=== PATIENT | male | born 1965 | race Caucasian/White ===

== ENCOUNTER 2016-11-05 08:14 | Emergency (ER) | payer BC ==
[~2016-11-05] VITALS: Ht 182.9 cm; Wt 102.1 kg
[2016-11-05 08:45] VITALS: BP 141/95
[2016-11-05] MEDS ORDERED: KETOROLAC TROMETH 60MG/2ML VIAL IM ONE (09:15)
== END 2016-11-05 09:49 | disposition home or self-care (01) ==
LOC: ER 08:15
DX: S46.911A Strain of unspecified muscle, fascia and tendon at shoulder and upper arm level, right arm, initial encounter (principal); Z88.6 Allergy status to analgesic agent; Z88.8 Allergy status to other drugs, medicaments and biological substances; Z91.041 Radiographic dye allergy status; W22.03XA Walked into furniture, initial encounter; Y93.89 Activity, other specified; Y99.9 Unspecified external cause status; Y92.009 Unspecified place in unspecified non-institutional (private) residence as the place of occurrence of the external cause
CPT/HCPCS: 29105; 73030; 96372; 99284; J1885

== ENCOUNTER 2019-10-18 18:06 | Inpatient (IN) | payer BC ==
[~2019-10-18] VITALS: Ht 182.9 cm; Wt 85.7 kg
[2019-10-18] MEDS ORDERED: PANTOPRAZOLE 40 MG/10 ML VIAL INJ IV STA (18:46)
[2019-10-18] MEDS ORDERED: SODIUM CHLORIDE 0.9% 1,000 ML IVB ONE (18:46)
[2019-10-18] MEDS ORDERED: ONDANSETRON HCL 4 MG/2 ML VIAL IV ONE (19:00)
[2019-10-18] MEDS ORDERED: MORPHINE SULFATE 4 MG/ML SYR/VIAL IV ONE (19:00)
[2019-10-18 21:02] LABS: Alanine Aminotransferase 76 U/L (16-61); Anion Gap 16 (5-15); Aspartate Aminotransferase 62 U/L (15-37); BUN/Creatinine Ratio 7.4; Blood Alcohol < 3.0 mg/dL (0-5); Blood Urea Nitrogen 6 mg/dL (7-18); Calcium 9.9 mg/dL (8.5-10.1); Carbon Dioxide 17 mmol/L (21-32); Chloride 82 mmol/L (98-107); GFR African American 129 mL/min; GFR Non-African American 106 mL/min; Glucose 93 mg/dL (74-106); Lipase 138 U/L (73-393); Potassium 4.2 mmol/L (3.5-5.1)
[2019-10-18 21:04] LABS: Alkaline Phosphatase 84 U/L (45-117); Bilirubin, Total 1.2 mg/dL (0.2-1.0); Total Protein 8.1 g/dL (6.4-8.2)
[2019-10-18 21:07] LABS: Sodium 115 mmol/L (136-145)
[2019-10-18 22:20] LABS: Basophils # (auto) 0.1 uL; Eosinophils # (auto) 0 uL; Mean Corpuscular Volume 99.4 fL (80.0-100.0); Platelet Count (auto) 183 10^3/uL (140-450); White Blood Cell 5.5 10^3/uL (4.4-10.8)
[2019-10-18 22:21] LABS: Eosinophils % (auto) 0.8 % (0.0-7.0); Hematocrit 41.3 % (41.0-53.0); Hemoglobin 15.3 g/dL (13.5-17.5); Mean Corpuscular Hemoglobin 36.8 pg (28.0-32.0); Mean Corpuscular Hgb Conc. 37.1 g/dL (32.0-36.0); Monocytes # (auto) 0.3 uL; Monocytes % (auto) 6.1 % (0.0-12.0); Neutrophils # (auto) 4.1 uL; Neutrophils % (auto) 74.1 % (37.0-80.0); Nucleated Red Blood Cells % 0.4 %; Red Blood Cells 4.15 10^6/uL (4.5-5.90); Red Cell Distribution Width 14.7 % (11.8-14.3)
[2019-10-18] MEDS ORDERED: NITROGLYCERIN 0.4 MG SL TAB SL PRN (22:45)
[2019-10-18] MEDS ORDERED: ONDANSETRON HCL 4 MG/2 ML VIAL IV PRN (22:45)
[2019-10-18] MEDS ORDERED: MORPHINE SULF INJ 2 MG/ML SYRINGE 1ML IV PRN (22:45)
[2019-10-18] MEDS ORDERED: SODIUM CHL 3% 500 ML IV ONE (23:00)
[2019-10-18 23:30] LABS: Urine Bacteria NONE SEEN /hpf (None Seen); Urine Blood Negative /uL (Negative); Urine Specific Gravity 1.005 (1.001-1.035); Urine WBC 1 /hpf (0 - 3)
[2019-10-19] VITALS (8 sets, daily range): BP systolic 128–165; BP diastolic 82–94
--- NOTE | 2019-10-19 01:05 | NUR ---
Admit to [facility] admitted to [facility] via gurney on monitor tech. Patient transferred to bed, connected to unit monitoring, and weighed by bed scale. Patient oriented to Adrinaa zamudio RN, unit, room, bed, and unit policies regarding patient care and visiting hours. All questions and concerns addressed, patient verbalized understanding. NOTE: PATIENT IS AWAKE, ALERT AND ORIENTED X4. TREMORS NOTED ON LEFT ARM. NO SOB OR DISTRESS NOTED. ON ROOM AIR. PAIN 3/10 NOTED TO ABDOMEN. NS INFUSING AT 100 ML/H. PHYSICAL ASSESSMENT COMPLETED, SEE INTERVENTIONS. INSTRUCTED ON POC AND TO CALL FOR ASSIST NEEDED. BED IS IN THE LOWEST POSITION WITH SIDE RAILS UP X2, CALL LIGHT IS WITHIN REACH. URINAL WITHIN REACH.
[2019-10-19] MEDS: chlordiazePOXIDE HCL 25 MG CAP PO PRN ×2 (01:32→09:28)
[2019-10-19] MEDS: TEMAZEPAM 15 MG CAP PO PRN (01:33)
[2019-10-19] MEDS ORDERED: BECL80AE11 IN (02:09)
[2019-10-19] MEDS ORDERED: ALBUAER3 IN (02:09)
[2019-10-19] MEDS ORDERED: BUPR200T7 PO (02:09)
[2019-10-19] MEDS ORDERED: OMEP20TA PO (02:09)
[2019-10-19] MEDS ORDERED: ALPR0.5T7 PO (02:09)
[2019-10-19] MEDS ORDERED: IBUP800T24 PO (02:09)
[2019-10-19] MEDS ORDERED: LISI40TA PO (02:09)
[2019-10-19] MEDS ORDERED: AML5T PO (02:09)
[2019-10-19] MEDS ORDERED: ZOLP10TA6 PO (02:09)
[2019-10-19] MEDS ORDERED: ALBUTEROL SULF 2.5 MG/0.5ML(0.5%) NEB SOLN NEB PRN (04:45)
[2019-10-19] MEDS: HYDROcodone-ACET 5/325MG TAB PO PRN ×2 (06:08→11:30)
[2019-10-19] MEDS ORDERED: cloNIDine HCL 0.1 MG TAB PO PRN (06:15)
--- NOTE | 2019-10-19 07:15 | NUR ---
END OF SHIFT REPORT GIVEN AND CARE ENDORSED TO AMY PRATER.
[2019-10-19 07:22] LABS: Basophils # (auto) 0 uL; Hemoglobin 14.8 g/dL (13.5-17.5); Mean Corpuscular Volume 99.6 fL (80.0-100.0); Nucleated Red Blood Cells % 0.3 %; White Blood Cell 4.3 10^3/uL (4.4-10.8)
[2019-10-19 07:24] LABS: Basophils % (auto) 0.4 % (0.0-2.0); Eosinophils # (auto) 0 uL; Hematocrit 39.5 % (41.0-53.0); Lymphocytes % (auto) 23.2 % (10.0-50.0); Mean Corpuscular Hemoglobin 37.4 pg (28.0-32.0); Mean Corpuscular Hgb Conc. 37.5 g/dL (32.0-36.0); Monocytes # (auto) 0.4 uL; Monocytes % (auto) 8.5 % (0.0-12.0); Neutrophils # (auto) 2.9 uL; Neutrophils % (auto) 66.9 % (37.0-80.0); Platelet Count (auto) 181 10^3/uL (140-450); Red Blood Cells 3.97 10^6/uL (4.5-5.90); Red Cell Distribution Width 14.2 % (11.8-14.3)
[2019-10-19 07:36] LABS: Potassium 3.9 mmol/L (3.5-5.1)
[2019-10-19 07:44] LABS: BUN/Creatinine Ratio 7.4; Bilirubin, Total 1.2 mg/dL (0.2-1.0); Calcium 9.4 mg/dL (8.5-10.1); Total Protein 7.7 g/dL (6.4-8.2)
--- NOTE | 2019-10-19 08:00 | NUR ---
OPEN RECEIVED REPORT FROM NIGHT RN. ASSUMED CARE OF [facility] PATIENT, FULL CODE STATUS. PATIENT A & O X4 CALM AND FOLLOWS COMMANDS. NO PAIN AT THIS TIME. PATIENT HAS IV TO RIGHT AC #18G WITH NA+ 3% AT 30 ML/HR. CURRENT NA + LEVEL THIS AM IS 120. PATIENT ON ROOM AIR, SATS 99%. PATIENT DUE TO VOID, USES URINAL. SKIN INTACT, PATIENT ABLE TO TURN SELF. WILL CONTINUE TO MONITOR. SZ PRECAUTIONS IN PLACE. CONTINUE CARE.
[2019-10-19] MEDS: FAMOTIDINE 20 MG TAB PO SCH ×2 (09:28→22:00)
[2019-10-19] MEDS: BUDESONIDE (INHALATION) 0.5 MG/2 ML NEB NEB SCH ×2 (09:47→18:50)
[2019-10-19] MEDS ORDERED: FOLIC ACID 1 MG, MULTIPLE VITAMIN 10 ML, MAGNESIUM SULF SDV 50% 8 MEQ, THIAMINE INJ 100... INJ SCH ×5 (12:00)
--- NOTE | 2019-10-19 13:29 | NUR ---
IV insertion IV access obtained, via clean sterile technique by inserting 20 gauge catheter at LEFT FA after 1 attempt. IV secured properly. No trauma to site. Patient tolerated well.
--- NOTE | 2019-10-19 15:30 | NUR ---
DR. Dony HERRING: ORDERS MD PLACED ORDERS IN PATIENT'S CHART AT THIS TIME. WILL CARRY OUT ORDERS GIVEN. CONTINUE CARE.
--- NOTE | 2019-10-19 16:15 | NUR ---
DR. SCHILLING CALLED: ORDERS MD UPDATED ON PT'S TRENDING NA+ LEVELS SINCE ADMISSION. ORDERS GIVEN TO STOP NA+3% GTT AT THIS TIME. DRAW NA+ LEVEL AT 1800. HAVE NOC RN CALL DR. SCHILLING WITH THE RESULTS TONIGHT. ALSO WANTING TO SEND URINE FOR OSMOLALITY AND SODIUM LEVELS. CONTINUE CARE. ORDERS TO BE CARRIED OUT. WILL SEND NEXT VOIDED URINE.
[2019-10-19 18:34] LABS: Potassium 4.3 mmol/L (3.5-5.1)
--- NOTE | 2019-10-19 19:35 | NUR ---
Opening Shift Note Received report from day nurse Vickie. Assumed care of patient in room 264. Patient awake and alert. No S/S of distress/SOB or pain. Instructed on POC and to call for assist PRN. Call light within reach and patient aware on usage. Bed set at lowest setting. Complete physical assessment under interventions. Will continue to monitor for changes Q1hr and PRN.
--- NOTE | 2019-10-19 20:15 | NUR ---
Paged Dr. Vega Regarding lab NA value. New orders given to decrease rate of banana bag to 80 mls/hr. Pharmacy called and informed of change.
[2019-10-19] MEDS: FOLIC ACID 1 MG, MULTIPLE VITAMIN 10 ML, MAGNESIUM SULF SDV 50% 8 MEQ, THIAMINE INJ 100... INJ SCH ×5 (21:15)
[2019-10-20] VITALS: BP 134/86
[2019-10-20 01:25] LABS: BUN/Creatinine Ratio 10.4; Calcium 8.7 mg/dL (8.5-10.1)
--- NOTE | 2019-10-20 02:00 | NUR ---
Patient reoriented Period where patient had forgotten location. Reoriented by RN and CCT.
--- NOTE | 2019-10-20 03:20 | NUR ---
Patient requesting drink Complaining of difficulty sleeping. Sleeping aid administered.
--- NOTE | 2019-10-20 03:41 | NUR ---
Full linen change Wash clothes provided. Patient able to wash himself.
[2019-10-20 04:00] VITALS: BP 134/78
[2019-10-20] MEDS: TEMAZEPAM 15 MG CAP PO PRN ×2 (04:22→22:20)
[2019-10-20 06:06] LABS: Potassium 3.7 mmol/L (3.5-5.1)
[2019-10-20 06:20] LABS: BUN/Creatinine Ratio 10.3; Calcium 8.8 mg/dL (8.5-10.1)
[2019-10-20] MEDS: BUDESONIDE (INHALATION) 0.5 MG/2 ML NEB NEB SCH ×2 (06:29→22:41)
[2019-10-20 07:45] VITALS: BP 131/92
--- NOTE | 2019-10-20 07:45 | NUR ---
Opening Shift Note Assumed care of patient, awake and alert. No S/S of distress/SOB or pain. Patient saturation 95% at room air. See interventions for complete assessment. Bed locked on low position, side rails up x2, bed alarms on at all times, call mckenzie within reach, instructed on POC and to call for assist PRN, will continue to monitor for changes Q1hr and PRN.
[2019-10-20] MEDS: FAMOTIDINE 20 MG TAB PO SCH ×2 (09:29→21:24)
[2019-10-20] MEDS: chlordiazePOXIDE HCL 25 MG CAP PO PRN (09:30)
[2019-10-20 11:45] VITALS: BP 129/89
[2019-10-20 12:07] LABS: Calcium 8.7 mg/dL (8.5-10.1)
[2019-10-20 12:09] LABS: BUN/Creatinine Ratio 11.5
[2019-10-20] MEDS: FOLIC ACID 1 MG, MULTIPLE VITAMIN 10 ML, MAGNESIUM SULF SDV 50% 8 MEQ, THIAMINE INJ 100... INJ SCH ×5 (12:35)
--- NOTE | 2019-10-20 12:57 | NUR ---
Patient's Sodium 126, paged Dr Vega. Awaiting call back.
--- NOTE | 2019-10-20 13:20 | NUR ---
Spoke to Dr Vega over the phone updated on patient's status. Informed of patient's sodium level 126. verbalized understanding. Will come and see patient.
--- NOTE | 2019-10-20 15:49 | NUR ---
Dr Vega at bedside, updated on patient's status. Patient seen and examined. Will carry out new orders.
[2019-10-20 15:50] VITALS: BP 122/80
--- NOTE | 2019-10-20 17:21 | NUR ---
Dr Mcgowan at bedside, updated on patient's status. Patient seen and examined. Will carry out new orders.
--- NOTE | 2019-10-20 18:19 | NUR ---
Spoke to Dr Mcgowan over the phone and states "I will put discharge order now but patient can go home tomorrow."
--- NOTE | 2019-10-20 19:00 | NUR ---
[facility] to [facility] floor ambulatory on production officer. All patient medications and personal belongings including cellphone transferred with patient to receiving floor. Patient care transferred to Ori PRATER.
--- NOTE | 2019-10-20 19:05 | NUR ---
Pt in stable condition arrived to the [facility] floor. Will continue care.
[2019-10-20] MEDS: ACETAMINOPHEN 325 MG TAB PO PRN (21:24)
[2019-10-20 22:00] VITALS: BP 140/76
[2019-10-20] MEDS: SODIUM CHLORIDE 1 GM TAB PO SCH (22:36)
--- NOTE | 2019-10-21 01:15 | NUR ---
Pt accidentally removed his IV from the right AC. He called for help because of bleeding. Compressive dressing applied. Bed change performed.
--- NOTE | 2019-10-21 03:10 | NUR ---
Checked IV Side for bleeding. No bleeding visible on the removed IV in the left ac.
--- NOTE | 2019-10-21 03:20 | NUR ---
Pt was outside of his room looking for a wrong room number. COST ESTIMATING CLERK helped him to find his room . Reoriented pt to place and time. He went to sleep again.
[2019-10-21 05:00] VITALS: BP 159/86
[2019-10-21] MEDS: SODIUM CHLORIDE 1 GM TAB PO SCH (06:56)
[2019-10-21 06:57] LABS: Calcium 8.8 mg/dL (8.5-10.1); Potassium 3.9 mmol/L (3.5-5.1)
--- NOTE | 2019-10-21 07:50 | NUR ---
OPENING NOTE ASSUMED CARE OF PT. ALERT AND ORIENTED. NO S/S OF SOB/DISTRESS NOTED. DENIES ANY PAIN. SAFETY PRECAUTIONS IN PLACE. BED SET TO LOWEST POSITION/LOCKED, BEDSIDE RAILS UP X2, CALL LIGHT WITH IN REACH. INSTRUCTED PT TO CALL FOR ASSISTANCE. UPDATED ON POC. PT VERBALIZED UNDERSTANDING. WILL CONTINUE TO MONITOR Q1HR AND PRN.
[2019-10-21 08:00] VITALS: BP 149/98
[2019-10-21] MEDS: chlordiazePOXIDE HCL 25 MG CAP PO PRN (09:11)
[2019-10-21] MEDS: ACETAMINOPHEN 325 MG TAB PO PRN (09:11)
[2019-10-21] MEDS: FAMOTIDINE 20 MG TAB PO SCH (09:11)
[2019-10-21] MEDS: BUDESONIDE (INHALATION) 0.5 MG/2 ML NEB NEB SCH (10:16)
[2019-10-21 10:34] VITALS: BP 149/98
--- NOTE | 2019-10-21 10:53 | NUR ---
DISCHARGE Discharge instructions given as ordered. Encourage to follow up with PMD as instructed. All questions and concerns addressed. Patient verbalized understanding. IV removed with catheter intact, pressure dressing applied. Telemetry unit returned to ICU.
--- NOTE | 2019-10-21 11:10 | NUR ---
TELE MONITOR TELE BOX #[id number] RETURNED TO ICU. FRENCH DRAWER ANGIE IS AWARE.
--- NOTE | 2019-10-21 11:35 | NUR ---
Patient taken to vehicle via wheelchair with all personal belongings, accompanied by staff and family member. No distress noted at time of departure.
== END 2019-10-21 11:37 | disposition home or self-care (01) | DRG 641 ==
LOC: EDBD 18:06 → ER 18:19 → TELE 18:20 → DOU IN ICU 23:37 → TELE-EAST 10-20 19:14
PROVIDERS: ADMIT Nurse Practitioner; ATTEND Internal Medicine
DX: E87.1 Hypo-osmolality and hyponatremia (principal); F10.231 Alcohol dependence with withdrawal delirium; E87.8 Other disorders of electrolyte and fluid balance, not elsewhere classified; R10.13 Epigastric pain; K70.30 Alcoholic cirrhosis of liver without ascites; R11.2 Nausea with vomiting, unspecified; J45.909 Unspecified asthma, uncomplicated; I10 Essential (primary) hypertension; E78.5 Hyperlipidemia, unspecified; F17.210 Nicotine dependence, cigarettes, uncomplicated; Z80.0 Family history of malignant neoplasm of digestive organs; Z80.1 Family history of malignant neoplasm of trachea, bronchus and lung; Z88.8 Allergy status to other drugs, medicaments and biological substances; Z79.899 Other long term (current) drug therapy; Z79.51 Long term (current) use of inhaled steroids
CPT/HCPCS: 36415; 74176; 80048; 80053; 80320; 81001; 83690; 83735; 83935; 84295; 84300; 85025; 94640; 96361; 96374; 96375; 99291; C9113; G0378; J2405

== ENCOUNTER 2021-09-20 12:50 | Inpatient (IN) | payer BC ==
[~2021-09-20] VITALS: Ht 177.8 cm; Wt 97.9 kg
[~2021-09-20 12:50] MED LIST: ALBUAER3 IN; ALPR0.5T7 PO; AML5T PO; BECL80AE11 IN; BUPR200T7 PO; LISI40TA11 PO; OMEP20TA PO; ZOLP10TA6 PO
[2021-09-20] MEDS ORDERED: SODIUM CHLORIDE 0.9% 1,000 ML IV ONE (13:45)
[2021-09-20 19:31] LABS: Basophils # (auto) 0.3 10 ^3/uL (0-0.2); Basophils % (auto) 1.8 % (0.0-2.0); Eosinophils # (auto) 0.5 10 ^3/uL (0-0.8); Eosinophils % (auto) 2.9 % (0.0-7.0); Hematocrit 36.5 % (41.0-53.0); Hemoglobin 13.1 g/dL (13.5-17.5); Lymphocytes # (auto) 1.1 10 ^3/uL (0.4-5.4); Lymphocytes % (auto) 7.2 % (10.0-50.0); Mean Corpuscular Hemoglobin 32.6 pg (28.0-32.0); Mean Corpuscular Volume 90.5 fL (80.0-100.0); Monocytes # (auto) 0.8 10 ^3/uL (0-1.3); Monocytes % (auto) 4.8 % (0.0-12.0); Neutrophils # (auto) 13.2 10 ^3/uL (1.6-8.6); Neutrophils % (auto) 83.3 % (37.0-80.0); Nucleated Red Blood Cells % 0.2 %; Red Blood Cells 4.03 10^6/uL (4.5-5.90); Red Cell Distribution Width 15.3 % (11.8-14.3); White Blood Cell 15.8 10^3/uL (4.4-10.8)
[2021-09-20 19:47] LABS: Albumin 3.2 g/dL (3.4-5.0); Calcium 8.7 mg/dL (8.5-10.1); Magnesium 3.3 mg/dL (1.6-2.6); Potassium 3.4 mmol/L (3.5-5.1)
[2021-09-20 19:53] LABS: Bilirubin, Total 0.8 mg/dL (0.2-1.0); Total Protein 7.1 g/dL (6.4-8.2)
[2021-09-20 20:11] LABS: BUN/Creatinine Ratio 35.5
[2021-09-21] MEDS ORDERED: cefTRIAXone 1GM/50ML D5W 50 ML IV ONE
[2021-09-21] MEDS ORDERED: AZITHROMYCIN 500MG/ 250ML 250 ML IV ONE
[2021-09-21] MEDS ORDERED: LORazepam 2MG/ML-1ML VIAL IV ONE (00:45)
[2021-09-21] MEDS ORDERED: ONDANSETRON HCL 4 MG/2 ML VIAL IV PRN (03:45)
[2021-09-21] MEDS ORDERED: hydrALAZINE HCL 10 MG TAB PO PRN (03:45)
[2021-09-21] MEDS ORDERED: ACETAMINOPHEN 325 MG TAB PO PRN (03:45)
[2021-09-21] MEDS: SODIUM CHLORIDE 0.9% 1,000 ML IV SCH ×2 (05:49→10:08)
[2021-09-21 08:27] LABS: BUN/Creatinine Ratio 44.4; Potassium 3.1 mmol/L (3.5-5.1)
[2021-09-21 08:28] LABS: Calcium 8.9 mg/dL (8.5-10.1)
[2021-09-21] MEDS: levoFLOXacin 500MG 100 ML IV SCH (09:59)
[2021-09-21] MEDS ORDERED: SODIUM CHLORIDE 0.9% 1,000 ML IV SCH (11:15)
[2021-09-21] MEDS ORDERED: NITROGLYCERIN 0.4 MG SL TAB SL PRN (11:30)
[2021-09-21 11:33] LABS: Potassium 3.1 mmol/L (3.5-5.1)
[2021-09-21 11:41] LABS: Calcium 8.5 mg/dL (8.5-10.1)
[2021-09-21] MEDS: SOD CHL 0.9%/ KCL 40MEQ 1,000 ML IV SCH ×2 (12:00→22:04)
[2021-09-21] MEDS ORDERED: POTASSIUM CHL 20 Meq TABLET PO ONE (13:45)
[2021-09-21 15:08] LABS: BUN/Creatinine Ratio 48.3; Calcium 8.6 mg/dL (8.5-10.1); Potassium 3.6 mmol/L (3.5-5.1)
[2021-09-21 17:55] LABS: Urine Bacteria NONE SEEN /hpf (None Seen); Urine Blood Negative /uL (Negative); Urine Mucus FEW (None Seen); Urine Specific Gravity 1.014 (1.001-1.035); Urine WBC 1 /hpf (0 - 3)
[2021-09-21 18:10] LABS: Creatinine, Urine 87 mg/dL (30.0-125.0); Protein, Urine 32.3 mg/dL (0.0-11.9); Sodium Urine 16 mmol/L (40-220)
[2021-09-21 21:19] VITALS: BP 151/63
[2021-09-21 22:18] LABS: BUN/Creatinine Ratio 52.4; Calcium 8.5 mg/dL (8.5-10.1); Potassium 3.7 mmol/L (3.5-5.1)
[2021-09-21] MEDS ORDERED: LORazepam 2MG/ML-1ML VIAL IV PRN ×2 (23:30)
[2021-09-21] MEDS ORDERED: chlordiazePOXIDE HCL 25 MG CAP PO PRN (23:30)
[2021-09-21] MEDS ORDERED: IBUP800T27 PO (23:31)
[2021-09-21 23:55] VITALS: BP 151/63
[2021-09-22 04:04] LABS: BUN/Creatinine Ratio 46.2; Calcium 8.3 mg/dL (8.5-10.1); Potassium 4.1 mmol/L (3.5-5.1)
[2021-09-22 05:00] VITALS: BP 119/71
[2021-09-22 06:06] LABS: Calcium 8.8 mg/dL (8.5-10.1); Potassium 4.3 mmol/L (3.5-5.1)
[2021-09-22 06:09] LABS: BUN/Creatinine Ratio 42.9; Phosphorus 3.1 mg/dL (2.5-4.90)
[2021-09-22 09:00] VITALS: BP 122/59
[2021-09-22] MEDS: levoFLOXacin 500MG 100 ML IV SCH (09:56)
[2021-09-22] MEDS: SOD CHL 0.9%/ KCL 40MEQ 1,000 ML IV SCH (11:35)
[2021-09-22 11:50] LABS: BUN/Creatinine Ratio 38.9; Calcium 8.7 mg/dL (8.5-10.1)
[2021-09-22] MEDS ORDERED: FOLIC ACID 1 MG, MULTIPLE VITAMIN 10 ML, MAGNESIUM SULF SDV 50% 8 MEQ, THIAMINE INJ 100... INJ SCH ×11 (12:00→12:58)
[2021-09-22] MEDS: SOD CHL 0.9%/ KCL 20MEQ 1,000 ML IV SCH (12:45)
[2021-09-22 13:00] VITALS: BP 122/74
[2021-09-22 14:24] LABS: Calcium 8.9 mg/dL (8.5-10.1); Potassium 3.9 mmol/L (3.5-5.1)
[2021-09-22] MEDS: DOXYCYCLINE 100MG/250ML 250 ML IV SCH (16:00)
[2021-09-22 17:00] VITALS: BP 125/76
[2021-09-22 19:51] LABS: BUN/Creatinine Ratio 36.8; Calcium 8.7 mg/dL (8.5-10.1); Potassium 3.9 mmol/L (3.5-5.1)
[2021-09-22 22:00] VITALS: BP 150/85
[2021-09-22 22:40] LABS: BUN/Creatinine Ratio 33.3; Calcium 8.9 mg/dL (8.5-10.1); Potassium 3.9 mmol/L (3.5-5.1)
[2021-09-23 02:36] LABS: BUN/Creatinine Ratio 44.4; Calcium 8.5 mg/dL (8.5-10.1); Potassium 3.9 mmol/L (3.5-5.1)
[2021-09-23] MEDS: SOD CHL 0.9%/ KCL 20MEQ 1,000 ML IV SCH ×2 (03:28→05:09)
[2021-09-23] MEDS: DOXYCYCLINE 100MG/250ML 250 ML IV SCH ×2 (03:28→16:33)
[2021-09-23 05:00] VITALS: BP 131/97
[2021-09-23 06:08] LABS: BUN/Creatinine Ratio 37.1; Calcium 8.5 mg/dL (8.5-10.1); Magnesium 2.6 mg/dL (1.6-2.6); Potassium 4.1 mmol/L (3.5-5.1)
[2021-09-23 06:40] LABS: White Blood Cell 8.1 10^3/uL (4.4-10.8)
[2021-09-23 06:42] LABS: Hematocrit 33.6 % (41.0-53.0); Hemoglobin 12.4 g/dL (13.5-17.5); Mean Corpuscular Hemoglobin 33.2 pg (28.0-32.0); Mean Corpuscular Volume 90.1 fL (80.0-100.0); Red Blood Cells 3.73 10^6/uL (4.5-5.90); Red Cell Distribution Width 15.9 % (11.8-14.3)
[2021-09-23 07:04] LABS: Mean Corpuscular Hgb Conc. 36.9 g/dL (32.0-36.0)
[2021-09-23 07:05] LABS: Basophils % (manual) 0 (0.0-2.0); Blast Cells 0; Promyelocytes % 0; Reactive Lymphocytes 0
[2021-09-23 08:11] LABS: Band Neutrophils % (manual) 1; Eosinophils % (manual) 4 (0-7); Lymphocytes % (manual) 20 (10.0-50.0); Metamyelocytes % 2; Monocytes % (manual) 6 (0-12); Myelocytes % 4
[2021-09-23] MEDS: cefTRIAXone 1GM/50ML D5W 50 ML IV SCH (08:58)
[2021-09-23] MEDS: FOLIC ACID 1 MG TAB PO SCH (08:58)
[2021-09-23 09:00] VITALS: BP 124/71
[2021-09-23 09:54] LABS: Calcium 8.8 mg/dL (8.5-10.1); Potassium 4.3 mmol/L (3.5-5.1)
[2021-09-23 09:59] LABS: BUN/Creatinine Ratio 34.1
[2021-09-23] MEDS: MAGNESIUM SULF IV SCH (12:11)
[2021-09-23] MEDS: POTASSIUM CHLORIDE IV SCH (12:11)
[2021-09-23] MEDS: [UNRECOGNIZED DRUG - OTHER] IV SCH (12:11)
[2021-09-23] MEDS: MULTIPLE VITAMIN IV SCH (12:11)
[2021-09-23 13:00] VITALS: BP 133/62
[2021-09-23] MEDS: ENOXAPARIN SOD 40 MG/0.4 ML SYRINGE SC SCH (13:33)
[2021-09-23 14:18] LABS: BUN/Creatinine Ratio 35.1; Calcium 8.5 mg/dL (8.5-10.1); Potassium 4.3 mmol/L (3.5-5.1)
[2021-09-23 17:00] VITALS: BP 139/80
[2021-09-23 18:38] LABS: BUN/Creatinine Ratio 38.7; Calcium 8.5 mg/dL (8.5-10.1); Potassium 4.1 mmol/L (3.5-5.1)
[2021-09-23 22:00] VITALS: BP 144/84
[2021-09-23 22:22] LABS: Calcium 8.5 mg/dL (8.5-10.1); Potassium 4.2 mmol/L (3.5-5.1)
[2021-09-23 22:25] LABS: BUN/Creatinine Ratio 35.1
[2021-09-24] MEDS: SOD CHL 0.9%/ KCL 20MEQ 1,000 ML IV SCH ×2 (02:41→04:07)
[2021-09-24 02:47] LABS: Calcium 8.7 mg/dL (8.5-10.1); Potassium 4.4 mmol/L (3.5-5.1)
[2021-09-24 02:50] LABS: BUN/Creatinine Ratio 38.2
[2021-09-24] MEDS: DOXYCYCLINE 100MG/250ML 250 ML IV SCH ×2 (04:07→17:05)
[2021-09-24 05:00] VITALS: BP 139/90
[2021-09-24 06:12] LABS: Urine Bacteria FEW /hpf (None Seen); Urine Blood Negative /uL (Negative); Urine Mucus FEW (None Seen); Urine Specific Gravity 1.016 (1.001-1.035); Urine WBC 1 /hpf (0 - 3)
[2021-09-24 06:20] LABS: BUN/Creatinine Ratio 35.1; Calcium 8.5 mg/dL (8.5-10.1); Potassium 4.3 mmol/L (3.5-5.1)
[2021-09-24] MEDS: PANTOPRAZOLE 40mg/50ML NS AE 50 ML IV SCH ×3 (09:15→22:20)
[2021-09-24] MEDS ORDERED: PANTOPRAZOLE 80 MG in SODIUM CHL 0.9% 100 ML IV ONE (09:15)
[2021-09-24] MEDS ORDERED: SOD CHL 0.9%/ KCL 20MEQ 1,000 ML IV SCH ×2 (09:15→17:00)
[2021-09-24] MEDS ORDERED: POLYETHYLENE GLYCOL 17 GM PWDR PO ONE (09:45)
[2021-09-24] MEDS: FOLIC ACID 1 MG TAB PO SCH (10:00)
[2021-09-24] MEDS: ENOXAPARIN SOD 40 MG/0.4 ML SYRINGE SC SCH (10:00)
[2021-09-24] MEDS ORDERED: GOLYTELY 4L KIT PO ONE ×2 (10:45→11:00)
[2021-09-24 10:48] LABS: Calcium 8.1 mg/dL (8.5-10.1); Potassium 4.4 mmol/L (3.5-5.1)
[2021-09-24] MEDS: OCTREOTIDE ACETATE 500 MCG in SODIUM CHL 0.9% 99 ML IV SCH ×2 (11:18→21:23)
[2021-09-24] MEDS: cefTRIAXone 1GM/50ML D5W 50 ML IV SCH (11:32)
[2021-09-24 12:30] VITALS: BP 132/78
[2021-09-24] MEDS: MAGNESIUM SULF IV SCH (12:58)
[2021-09-24] MEDS: POTASSIUM CHLORIDE IV SCH (12:58)
[2021-09-24] MEDS: [UNRECOGNIZED DRUG - OTHER] IV SCH (12:58)
[2021-09-24] MEDS: MULTIPLE VITAMIN IV SCH (12:58)
[2021-09-24 13:34] LABS: Hemoglobin 9.7 g/dL (13.5-17.5); Mean Corpuscular Hemoglobin 32.9 pg (28.0-32.0); Mean Corpuscular Hgb Conc. 35.9 g/dL (32.0-36.0); Mean Corpuscular Volume 91.7 fL (80.0-100.0); Red Blood Cells 2.94 10^6/uL (4.5-5.90); White Blood Cell 8.6 10^3/uL (4.4-10.8)
[2021-09-24 13:42] LABS: Basophils % (manual) 0 (0.0-2.0); Blast Cells 0; Myelocytes % 0; Promyelocytes % 0; Reactive Lymphocytes 0
[2021-09-24 13:55] LABS: BUN/Creatinine Ratio 42.1; Potassium 4.7 mmol/L (3.5-5.1)
[2021-09-24 13:56] LABS: INR 1.07 (0.9-1.15)
[2021-09-24 14:13] LABS: Band Neutrophils % (manual) 5; Eosinophils % (manual) 2 (0-7); Lymphocytes % (manual) 25 (10.0-50.0); Metamyelocytes % 2; Monocytes % (manual) 4 (0-12)
[2021-09-24 17:00] VITALS: BP 123/77
[2021-09-24 18:53] LABS: BUN/Creatinine Ratio 40.7; Calcium 8.3 mg/dL (8.5-10.1); Potassium 5.4 mmol/L (3.5-5.1)
[2021-09-24 22:00] VITALS: BP 143/88
[2021-09-24 23:26] LABS: BUN/Creatinine Ratio 45.1; Calcium 8.4 mg/dL (8.5-10.1); Potassium 4.8 mmol/L (3.5-5.1)
[2021-09-25] MEDS: DOXYCYCLINE 100MG/250ML 250 ML IV SCH ×2 (03:14→17:03)
[2021-09-25] MEDS: PANTOPRAZOLE 40mg/50ML NS AE 50 ML IV SCH ×4 (04:29→22:45)
[2021-09-25 05:00] VITALS: BP 140/83
[2021-09-25] MEDS: OCTREOTIDE ACETATE 500 MCG in SODIUM CHL 0.9% 99 ML IV SCH ×2 (05:40→17:27)
[2021-09-25 06:29] LABS: Basophils # (auto) 0.1 10 ^3/uL (0-0.2); Basophils % (auto) 1.3 % (0.0-2.0); Eosinophils # (auto) 0.2 10 ^3/uL (0-0.8)
[2021-09-25 06:41] LABS: Eosinophils % (auto) 2.1 % (0.0-7.0); Lymphocytes # (auto) 1.6 10 ^3/uL (0.4-5.4); Lymphocytes % (auto) 18.2 % (10.0-50.0); Monocytes # (auto) 0.9 10 ^3/uL (0-1.3); Monocytes % (auto) 10.2 % (0.0-12.0); Neutrophils % (auto) 68.2 % (37.0-80.0); Nucleated Red Blood Cells % 0.2 %; White Blood Cell 8.8 10^3/uL (4.4-10.8)
[2021-09-25 06:51] LABS: BUN/Creatinine Ratio 40.4; Calcium 8.2 mg/dL (8.5-10.1); Magnesium 2.1 mg/dL (1.6-2.6); Potassium 4.7 mmol/L (3.5-5.1)
[2021-09-25 07:49] LABS: Hematocrit 24.8 % (41.0-53.0); Hemoglobin 8.9 g/dL (13.5-17.5); Mean Corpuscular Hemoglobin 33.1 pg (28.0-32.0); Mean Corpuscular Hgb Conc. 35.9 g/dL (32.0-36.0); Red Blood Cells 2.69 10^6/uL (4.5-5.90); Red Cell Distribution Width 15.5 % (11.8-14.3)
[2021-09-25 08:00] VITALS: BP 138/60
[2021-09-25 09:00] VITALS: BP 138/60
[2021-09-25] MEDS: FOLIC ACID 1 MG TAB PO SCH (10:00)
[2021-09-25] MEDS: cefTRIAXone 1GM/50ML D5W 50 ML IV SCH (11:05)
[2021-09-25] MEDS: MAGNESIUM SULF IV SCH (12:44)
[2021-09-25] MEDS: [UNRECOGNIZED DRUG - OTHER] IV SCH (12:44)
[2021-09-25] MEDS: POTASSIUM CHLORIDE IV SCH (12:44)
[2021-09-25] MEDS: MULTIPLE VITAMIN IV SCH (12:44)
[2021-09-25 13:00] VITALS: BP 128/71
[2021-09-25 17:00] VITALS: BP 133/79
[2021-09-25 18:05] LABS: Free T4 (Free Thyroxine) 1.12 ng/dL (0.89-1.76)
[2021-09-25 20:00] VITALS: BP 133/75
[2021-09-25 23:57] LABS: Amphetamine Screen, Urine NEGATIVE (NEGATIVE); Barbiturate Scree,Urine NEGATIVE (NEGATIVE); Benzodiazephine Screen, Urine NEGATIVE (NEGATIVE); Cannabinoid Screen, Urine NEGATIVE (NEGATIVE); Cocaine Screen, Urine NEGATIVE (NEGATIVE); Opiate Scree,Urine NEGATIVE (NEGATIVE); Phencyclidine Screen, Urine NEGATIVE (NEGATIVE)
[2021-09-26] VITALS (14 sets, daily range): BP systolic 82–122; BP diastolic 48–69
[2021-09-26] MEDS: OCTREOTIDE ACETATE 500 MCG in SODIUM CHL 0.9% 99 ML IV SCH ×3 (00:57→21:57)
[2021-09-26] MEDS: DOXYCYCLINE 100MG/250ML 250 ML IV SCH (03:41)
[2021-09-26] MEDS: PANTOPRAZOLE 40mg/50ML NS AE 50 ML IV SCH ×3 (05:13→17:30)
[2021-09-26] MEDS: HYDROcodone-ACET 5/325MG TAB PO PRN (05:28)
[2021-09-26] MEDS: cefTRIAXone 1GM/50ML D5W 50 ML IV SCH (09:35)
[2021-09-26] MEDS: FOLIC ACID 1 MG TAB PO SCH (09:36)
[2021-09-26] MEDS: THIAMINE 100mg/ml INJ (200mg/2ml VIAL) IV SCH (09:36)
[2021-09-26 10:28] LABS: Basophils # (auto) 0.1 10 ^3/uL (0-0.2); Basophils % (auto) 0.4 % (0.0-2.0); Eosinophils # (auto) 0 10 ^3/uL (0-0.8); Lymphocytes # (auto) 1.6 10 ^3/uL (0.4-5.4); Monocytes # (auto) 1.1 10 ^3/uL (0-1.3)
[2021-09-26 10:30] LABS: Eosinophils % (auto) 0.1 % (0.0-7.0); Hematocrit 16.7 % (41.0-53.0); Lymphocytes % (auto) 11.2 % (10.0-50.0); Mean Corpuscular Hemoglobin 32.8 pg (28.0-32.0); Mean Corpuscular Hgb Conc. 35.5 g/dL (32.0-36.0); Mean Corpuscular Volume 92.5 fL (80.0-100.0); Monocytes % (auto) 7.4 % (0.0-12.0); Neutrophils # (auto) 11.8 10 ^3/uL (1.6-8.6); Neutrophils % (auto) 80.9 % (37.0-80.0); Red Cell Distribution Width 16.3 % (11.8-14.3); White Blood Cell 14.6 10^3/uL (4.4-10.8)
[2021-09-26 10:36] LABS: Hemoglobin 5.9 g/dL (13.5-17.5)
[2021-09-26 10:46] LABS: Albumin 2.6 g/dL (3.4-5.0); Calcium 7.9 mg/dL (8.5-10.1); Potassium 4.8 mmol/L (3.5-5.1)
[2021-09-26 10:51] LABS: Bilirubin, Total 0.3 mg/dL (0.2-1.0); Total Protein 4.8 g/dL (6.4-8.2)
[2021-09-26] MEDS: POTASSIUM CHLORIDE IV SCH (12:00)
[2021-09-26] MEDS ORDERED: IRON SUCROSE COMPLEX 200 MG in SODIUM CHL 0.9% 100 ML IV SCH (12:00)
[2021-09-26] MEDS: MULTIPLE VITAMIN IV SCH (12:00)
[2021-09-26] MEDS: [UNRECOGNIZED DRUG - OTHER] IV SCH (12:00)
[2021-09-26] MEDS: MAGNESIUM SULF IV SCH (12:00)
[2021-09-26] MEDS: SODIUM FERR GLUC 62.5MG/5ML 125 MG in SODIUM CHL 0.9% 100 ML IV SCH (14:29)
[2021-09-26] MEDS ORDERED: LORazepam 2MG/ML-1ML VIAL IV ONE (15:45)
[2021-09-26] MEDS ORDERED: PPN PER PHARMACY 0 ML IV SCH (17:00)
[2021-09-26 18:03] LABS: Basophils # (auto) 0.1 10 ^3/uL (0-0.2); Eosinophils # (auto) 0.1 10 ^3/uL (0-0.8); Lymphocytes # (auto) 1.9 10 ^3/uL (0.4-5.4); Nucleated Red Blood Cells % 0.1 %; White Blood Cell 10.3 10^3/uL (4.4-10.8)
[2021-09-26 18:05] LABS: Basophils % (auto) 0.8 % (0.0-2.0); Eosinophils % (auto) 0.8 % (0.0-7.0); Hematocrit 18.3 % (41.0-53.0); Lymphocytes % (auto) 18.4 % (10.0-50.0); Mean Corpuscular Hemoglobin 32.6 pg (28.0-32.0); Mean Corpuscular Hgb Conc. 34.9 g/dL (32.0-36.0); Mean Corpuscular Volume 93.6 fL (80.0-100.0); Monocytes % (auto) 9.3 % (0.0-12.0); Neutrophils # (auto) 7.3 10 ^3/uL (1.6-8.6); Neutrophils % (auto) 70.7 % (37.0-80.0); Red Blood Cells 1.95 10^6/uL (4.5-5.90)
[2021-09-26 18:15] LABS: Hemoglobin 6.4 g/dL (13.5-17.5)
[2021-09-26] MEDS ORDERED: AMINO ACID INFUSION IN D10W 1,000 ML IV NR (20:00)
[2021-09-26] MEDS: chlordiazePOXIDE HCL 25 MG CAP PO SCH (21:57)
[2021-09-26 23:03] LABS: Hematocrit 20.6 % (41.0-53.0); Hemoglobin 7.2 g/dL (13.5-17.5)
[2021-09-27] VITALS (18 sets, daily range): BP systolic 90–137; BP diastolic 52–84
[2021-09-27] MEDS ORDERED: DEXTROSE (50%) 50ML SYRG IV SCH
[2021-09-27] MEDS: LORazepam 2MG/ML-1ML VIAL IV PRN ×2 (00:43→17:22)
[2021-09-27] MEDS: PANTOPRAZOLE 40mg/50ML NS AE 50 ML IV SCH ×3 (01:03→12:31)
[2021-09-27] MEDS: InsuLIN REG 1unit/0.01ml Soln (100units/ml) SC SCH ×4 (06:00→18:00)
[2021-09-27] MEDS: ACCU-CHEK COMFORT CURVE STRIP VI SCH ×4 (06:34→17:52)
[2021-09-27] MEDS: OCTREOTIDE ACETATE 500 MCG in SODIUM CHL 0.9% 99 ML IV SCH ×2 (07:15→09:32)
[2021-09-27] MEDS ORDERED: IOHEXOL 300 MG/ML 100ML BOTTLE IJ ONE (07:52)
[2021-09-27 08:06] LABS: Basophils # (auto) 0.1 10 ^3/uL (0-0.2); Eosinophils # (auto) 0.3 10 ^3/uL (0-0.8); Lymphocytes # (auto) 1.6 10 ^3/uL (0.4-5.4); Monocytes # (auto) 0.9 10 ^3/uL (0-1.3); Monocytes % (auto) 8.5 % (0.0-12.0); Nucleated Red Blood Cells % 0.1 %
[2021-09-27 08:08] LABS: Eosinophils % (auto) 2.4 % (0.0-7.0); Hematocrit 18.2 % (41.0-53.0); Lymphocytes % (auto) 15.1 % (10.0-50.0); Mean Corpuscular Hemoglobin 33.2 pg (28.0-32.0); Mean Corpuscular Hgb Conc. 36.3 g/dL (32.0-36.0); Mean Corpuscular Volume 91.7 fL (80.0-100.0); Neutrophils # (auto) 7.8 10 ^3/uL (1.6-8.6); Red Blood Cells 1.98 10^6/uL (4.5-5.90); Red Cell Distribution Width 16.1 % (11.8-14.3); White Blood Cell 10.7 10^3/uL (4.4-10.8)
[2021-09-27 08:17] LABS: INR 1.05 (0.9-1.15); Partial Thromboplastin Time 28.8 sec (23.6-33.0)
[2021-09-27 08:18] LABS: Hemoglobin 6.6 g/dL (13.5-17.5)
[2021-09-27 08:22] LABS: Albumin 2.6 g/dL (3.4-5.0); Potassium 4.5 mmol/L (3.5-5.1)
[2021-09-27 08:33] LABS: BUN/Creatinine Ratio 43.1; Bilirubin, Total 0.4 mg/dL (0.2-1.0); Calcium 8.1 mg/dL (8.5-10.1); Magnesium 2.8 mg/dL (1.6-2.6); Phosphorus 3.5 mg/dL (2.5-4.90); Pre Albumin 14.3 mg/dL (20.0-40.0); Total Protein 4.8 g/dL (6.4-8.2)
[2021-09-27] MEDS: cefTRIAXone 1GM/50ML D5W 50 ML IV SCH (09:32)
[2021-09-27] MEDS: FOLIC ACID 1 MG TAB PO SCH (09:51)
[2021-09-27] MEDS: THIAMINE 100mg/ml INJ (200mg/2ml VIAL) IV SCH (09:51)
[2021-09-27] MEDS: chlordiazePOXIDE HCL 25 MG CAP PO SCH ×2 (09:52→21:40)
[2021-09-27] MEDS: POTASSIUM CHLORIDE IV SCH (12:00)
[2021-09-27] MEDS: [UNRECOGNIZED DRUG - OTHER] IV SCH (12:00)
[2021-09-27] MEDS: MULTIPLE VITAMIN IV SCH (12:00)
[2021-09-27] MEDS: MAGNESIUM SULF IV SCH (12:00)
[2021-09-27] MEDS ORDERED: LIDOCAINE VISCOUS 2% 15ML UD ONE (12:16)
[2021-09-27] MEDS: SODIUM FERR GLUC 62.5MG/5ML 125 MG in SODIUM CHL 0.9% 100 ML IV SCH (12:30)
[2021-09-27] MEDS: fentaNYL CITRATE 100 MCG/2 ML VL ONE ×2 (14:06→14:10)
[2021-09-27] MEDS: diphenhdrAMINE HCL 50 MG/1 ML VL ONE ×2 (14:06→14:10)
[2021-09-27] MEDS: MIDAZOLAM HCL 5 MG/ML-1ML VIAL ONE ×3 (14:06→14:13)
[2021-09-27] MEDS ORDERED: GOLYTELY 4L KIT NG ONE (14:45)
[2021-09-27 19:57] LABS: Hematocrit 25.3 % (41.0-53.0)
[2021-09-27] MEDS ORDERED: PPN PER PHARMACY IV NR ×7 (20:00)
[2021-09-28] MEDS: ACCU-CHEK COMFORT CURVE STRIP VI SCH ×4 (00:31→18:03)
[2021-09-28] MEDS: LORazepam 2MG/ML-1ML VIAL IV PRN (00:34)
[2021-09-28 04:18] LABS: Basophils # (auto) 0.1 10 ^3/uL (0-0.2); Basophils % (auto) 1.4 % (0.0-2.0); Eosinophils # (auto) 0.4 10 ^3/uL (0-0.8); Eosinophils % (auto) 4.6 % (0.0-7.0); Hematocrit 24.3 % (41.0-53.0); Hemoglobin 8.8 g/dL (13.5-17.5); Lymphocytes # (auto) 1.4 10 ^3/uL (0.4-5.4); Lymphocytes % (auto) 15.4 % (10.0-50.0); Mean Corpuscular Hemoglobin 33.2 pg (28.0-32.0); Mean Corpuscular Hgb Conc. 36.4 g/dL (32.0-36.0); Mean Corpuscular Volume 91.2 fL (80.0-100.0); Monocytes # (auto) 0.7 10 ^3/uL (0-1.3); Monocytes % (auto) 7.7 % (0.0-12.0); Neutrophils # (auto) 6.3 10 ^3/uL (1.6-8.6); Neutrophils % (auto) 70.9 % (37.0-80.0); Nucleated Red Blood Cells % 0.2 %; Red Blood Cells 2.66 10^6/uL (4.5-5.90); White Blood Cell 8.9 10^3/uL (4.4-10.8)
[2021-09-28 04:44] LABS: Albumin 2.6 g/dL (3.4-5.0); BUN/Creatinine Ratio 45.2; Calcium 8.2 mg/dL (8.5-10.1)
[2021-09-28 04:47] LABS: Bilirubin, Total 0.5 mg/dL (0.2-1.0); Phosphorus 3.7 mg/dL (2.5-4.90); Total Protein 4.9 g/dL (6.4-8.2)
[2021-09-28 05:00] VITALS: BP 131/70
[2021-09-28] MEDS: InsuLIN REG 1unit/0.01ml Soln (100units/ml) SC SCH ×4 (05:18→18:00)
[2021-09-28] MEDS ORDERED: MAGNESIUM CITRATE SOLUTION 300 ML BTL NG ONE (06:00)
[2021-09-28 09:00] VITALS: BP 135/79
[2021-09-28] MEDS: cefTRIAXone 1GM/50ML D5W 50 ML IV SCH (09:00)
[2021-09-28] MEDS: THIAMINE 100mg/ml INJ (200mg/2ml VIAL) IV SCH (10:00)
[2021-09-28] MEDS: PANTOPRAZOLE 40 MG/10 ML VIAL INJ IV SCH (10:00)
[2021-09-28] MEDS: chlordiazePOXIDE HCL 25 MG CAP PO SCH ×2 (10:00→22:08)
[2021-09-28] MEDS: FOLIC ACID 1 MG TAB PO SCH (10:00)
[2021-09-28] MEDS: [UNRECOGNIZED DRUG - OTHER] IV SCH (12:00)
[2021-09-28] MEDS: MULTIPLE VITAMIN IV SCH (12:00)
[2021-09-28] MEDS: MAGNESIUM SULF IV SCH (12:00)
[2021-09-28] MEDS: SODIUM FERR GLUC 62.5MG/5ML 125 MG in SODIUM CHL 0.9% 100 ML IV SCH (12:00)
[2021-09-28] MEDS: POTASSIUM CHLORIDE IV SCH (12:00)
[2021-09-28 13:00] VITALS: BP 139/76
[2021-09-28 16:03] LABS: Basophils # (auto) 0.1 10 ^3/uL (0-0.2); Basophils % (auto) 1.1 % (0.0-2.0); Eosinophils # (auto) 0.3 10 ^3/uL (0-0.8); Eosinophils % (auto) 3.4 % (0.0-7.0); Hematocrit 24.4 % (41.0-53.0); Hemoglobin 8.5 g/dL (13.5-17.5); Lymphocytes # (auto) 1.3 10 ^3/uL (0.4-5.4); Mean Corpuscular Hemoglobin 31.7 pg (28.0-32.0); Mean Corpuscular Hgb Conc. 34.7 g/dL (32.0-36.0); Mean Corpuscular Volume 91.4 fL (80.0-100.0); Monocytes # (auto) 0.7 10 ^3/uL (0-1.3); Monocytes % (auto) 7.7 % (0.0-12.0); Neutrophils # (auto) 6.4 10 ^3/uL (1.6-8.6); Neutrophils % (auto) 72.8 % (37.0-80.0); Nucleated Red Blood Cells % 0.2 %; Red Blood Cells 2.67 10^6/uL (4.5-5.90); Red Cell Distribution Width 15.5 % (11.8-14.3); White Blood Cell 8.8 10^3/uL (4.4-10.8)
[2021-09-28 17:00] VITALS: BP 135/79
[2021-09-28] MEDS ORDERED: PPN PER PHARMACY IV NR ×10 (20:00)
[2021-09-28 22:00] VITALS: BP 135/75
[2021-09-29] MEDS: ACCU-CHEK COMFORT CURVE STRIP VI SCH ×4 (00:35→18:06)
[2021-09-29] MEDS: LORazepam 2MG/ML-1ML VIAL IV PRN ×2 (00:36→22:55)
[2021-09-29] MEDS: HYDROcodone-ACET 5/325MG TAB PO PRN ×2 (02:53→21:03)
[2021-09-29 05:00] VITALS: BP 135/73
[2021-09-29] MEDS: InsuLIN REG 1unit/0.01ml Soln (100units/ml) SC SCH ×4 (06:00→18:11)
[2021-09-29 07:00] LABS: Basophils # (auto) 0.1 10 ^3/uL (0-0.2); Eosinophils # (auto) 0.3 10 ^3/uL (0-0.8); Eosinophils % (auto) 4.6 % (0.0-7.0); Hemoglobin 8.9 g/dL (13.5-17.5); Lymphocytes # (auto) 1.1 10 ^3/uL (0.4-5.4); Lymphocytes % (auto) 15.9 % (10.0-50.0); Mean Corpuscular Hemoglobin 32.7 pg (28.0-32.0); Mean Corpuscular Hgb Conc. 35.5 g/dL (32.0-36.0); Mean Corpuscular Volume 92.1 fL (80.0-100.0); Monocytes # (auto) 0.6 10 ^3/uL (0-1.3); Monocytes % (auto) 8.2 % (0.0-12.0); Neutrophils % (auto) 70.3 % (37.0-80.0); Nucleated Red Blood Cells % 0.2 %; Red Blood Cells 2.71 10^6/uL (4.5-5.90); Red Cell Distribution Width 16.1 % (11.8-14.3); White Blood Cell 7.1 10^3/uL (4.4-10.8)
[2021-09-29 07:19] LABS: INR 0.99 (0.9-1.15); Partial Thromboplastin Time 32.5 sec (23.6-33.0)
[2021-09-29 07:20] LABS: Albumin 2.8 g/dL (3.4-5.0); Calcium 8.1 mg/dL (8.5-10.1); Magnesium 3.1 mg/dL (1.6-2.6); Potassium 4.1 mmol/L (3.5-5.1)
[2021-09-29 07:23] LABS: BUN/Creatinine Ratio 33.3; Bilirubin, Total 0.4 mg/dL (0.2-1.0); Phosphorus 3.6 mg/dL (2.5-4.90); Total Protein 5.4 g/dL (6.4-8.2)
[2021-09-29] MEDS ORDERED: NALOXONE HCL 0.4 MG/ML VIAL ONE (08:23)
[2021-09-29] MEDS ORDERED: FLUMAZENIL 0.1 MG/ML INJ 10ML MDV IV ONE (08:23)
[2021-09-29] MEDS ORDERED: diphenhdrAMINE HCL 50 MG/1 ML VL ONE (08:24)
[2021-09-29 08:45] VITALS: BP 141/74
[2021-09-29] MEDS: fentaNYL CITRATE 100 MCG/2 ML VL ONE ×3 (09:03→09:30)
[2021-09-29] MEDS: MIDAZOLAM HCL 5 MG/ML-1ML VIAL ONE ×3 (09:24→09:34)
[2021-09-29] MEDS: FOLIC ACID 1 MG TAB PO SCH (10:37)
[2021-09-29] MEDS: PANTOPRAZOLE 40 MG/10 ML VIAL INJ IV SCH (10:37)
[2021-09-29] MEDS: THIAMINE 100mg/ml INJ (200mg/2ml VIAL) IV SCH (10:37)
[2021-09-29] MEDS: cefTRIAXone 1GM/50ML D5W 50 ML IV SCH (10:38)
[2021-09-29] MEDS: chlordiazePOXIDE HCL 25 MG CAP PO SCH (10:38)
[2021-09-29 11:51] VITALS: BP 141/77
[2021-09-29] MEDS ORDERED: POTASSIUM CHLORIDE IV SCH ×2 (12:00→13:15)
[2021-09-29] MEDS ORDERED: MULTIPLE VITAMIN IV SCH ×2 (12:00→13:15)
[2021-09-29] MEDS ORDERED: SODIUM CHLORIDE 0.9% IV SCH (12:00)
[2021-09-29] MEDS: ALBUTEROL SULF 2.5 MG/0.5ML(0.5%) NEB SOLN NEB PRN (13:14)
[2021-09-29] MEDS ORDERED: FOLIC ACID IV SCH (13:15)
[2021-09-29] MEDS ORDERED: [UNRECOGNIZED DRUG - OTHER] IV SCH (13:15)
[2021-09-29] MEDS: levoFLOXacin 500 MG TAB PO SCH (15:00)
[2021-09-29] MEDS ORDERED: TRAM50TA2 PO (16:12)
[2021-09-29] MEDS ORDERED: BUTA-281 OR (16:12)
[2021-09-29] MEDS ORDERED: CYCL-839 PO (16:12)
[2021-09-29 17:00] VITALS: BP 128/80
[2021-09-29] MEDS: SODIUM CHLORIDE 0.9% 1,000 ML IV SCH (17:00)
[2021-09-29] MEDS ORDERED: buPROPion HCL 100 MG TAB PO ONE (17:30)
[2021-09-29 17:53] LABS: Hematocrit 25.9 % (41.0-53.0); Hemoglobin 8.9 g/dL (13.5-17.5)
[2021-09-29] MEDS ORDERED: PPN PER PHARMACY IV NR ×8 (20:00)
[2021-09-29 21:34] VITALS: BP 116/89
[2021-09-29] MEDS ORDERED: chlordiazePOXIDE HCL 5 MG CAP PO SCH (22:00)
[2021-09-29] MEDS ORDERED: GABAPENTIN 300 MG CAP PO SCH (22:00)
[2021-09-30] MEDS: ACCU-CHEK COMFORT CURVE STRIP VI SCH ×4 (00:13→18:00)
[2021-09-30] MEDS: SODIUM CHLORIDE 0.9% 1,000 ML IV SCH (03:53)
[2021-09-30 05:00] VITALS: BP 144/86
[2021-09-30] MEDS: InsuLIN REG 1unit/0.01ml Soln (100units/ml) SC SCH ×4 (05:31→18:00)
[2021-09-30] MEDS: ALBUTEROL SULF 2.5 MG/0.5ML(0.5%) NEB SOLN NEB PRN (05:54)
[2021-09-30 06:40] LABS: Basophils # (auto) 0.1 10 ^3/uL (0-0.2); Basophils % (auto) 1.2 % (0.0-2.0); Eosinophils # (auto) 0.4 10 ^3/uL (0-0.8); Eosinophils % (auto) 4.8 % (0.0-7.0); Hematocrit 24.4 % (41.0-53.0); Hemoglobin 8.5 g/dL (13.5-17.5); Lymphocytes % (auto) 13.9 % (10.0-50.0); Mean Corpuscular Hemoglobin 32.5 pg (28.0-32.0); Mean Corpuscular Hgb Conc. 34.8 g/dL (32.0-36.0); Mean Corpuscular Volume 93.4 fL (80.0-100.0); Monocytes # (auto) 0.6 10 ^3/uL (0-1.3); Monocytes % (auto) 7.5 % (0.0-12.0); Neutrophils # (auto) 5.4 10 ^3/uL (1.6-8.6); Neutrophils % (auto) 72.6 % (37.0-80.0); Nucleated Red Blood Cells % 0.2 %; Red Blood Cells 2.61 10^6/uL (4.5-5.90); White Blood Cell 7.5 10^3/uL (4.4-10.8)
[2021-09-30 07:03] LABS: Albumin 2.8 g/dL (3.4-5.0); Magnesium 2.5 mg/dL (1.6-2.6); Potassium 3.9 mmol/L (3.5-5.1)
[2021-09-30 07:06] LABS: BUN/Creatinine Ratio 25.7; Bilirubin, Total 0.4 mg/dL (0.2-1.0); Phosphorus 3.7 mg/dL (2.5-4.90); Total Protein 5.3 g/dL (6.4-8.2)
[2021-09-30 08:44] VITALS: BP 144/90
[2021-09-30] MEDS: PANTOPRAZOLE 40 MG/10 ML VIAL INJ IV SCH (08:50)
[2021-09-30] MEDS: levoFLOXacin 500 MG TAB PO SCH (08:50)
[2021-09-30] MEDS ORDERED: THIAMINE HCL 100 MG TAB PO SCH (10:00)
[2021-09-30] MEDS ORDERED: ALPRAZolam 0.5 MG TAB PO SCH (10:00)
[2021-09-30] MEDS ORDERED: buPROPion HCL 100 MG TAB PO SCH (10:00)
[2021-09-30] MEDS: HYDROcodone-ACET 5/325MG TAB PO PRN (11:50)
[2021-09-30 13:21] VITALS: BP 144/72
[2021-09-30 17:37] VITALS: BP 131/77
[2021-09-30] MEDS ORDERED: PPN PER PHARMACY IV NR ×9 (20:00)
== END 2021-09-30 18:07 | DRG 70 ==
LOC: ER 12:50 → EDBD 12:50 → TELE 12:51 → TELE-WESTW 09-21 18:44
PROVIDERS: ADMIT Nurse Practitioner Family; ATTEND Nurse Practitioner Family
PROC: 0DB68ZX Excision of Stomach, Via Natural or Artificial Opening Endoscopic, Diagnostic (ICD-10-PCS; 2021-09-27)
PROC: 0DB98ZX Excision of Duodenum, Via Natural or Artificial Opening Endoscopic, Diagnostic (ICD-10-PCS; principal; 2021-09-27 13:55)
PROC: 0W3P8ZZ Control Bleeding in Gastrointestinal Tract, Via Natural or Artificial Opening Endoscopic (ICD-10-PCS; 2021-09-29)
DX: G93.41 Metabolic encephalopathy (principal); J96.01 Acute respiratory failure with hypoxia; J18.9 Pneumonia, unspecified organism; J44.0 Chronic obstructive pulmonary disease with (acute) lower respiratory infection; J98.11 Atelectasis; E87.1 Hypo-osmolality and hyponatremia; E51.2 Wernicke's encephalopathy; D62 Acute posthemorrhagic anemia; K62.5 Hemorrhage of anus and rectum; K21.9 Gastro-esophageal reflux disease without esophagitis; F17.210 Nicotine dependence, cigarettes, uncomplicated; Z20.822 Contact with and (suspected) exposure to COVID-19; E88.09 Other disorders of plasma-protein metabolism, not elsewhere classified; F41.9 Anxiety disorder, unspecified; I10 Essential (primary) hypertension; M50.10 Cervical disc disorder with radiculopathy, unspecified cervical region; R29.6 Repeated falls; S46.911A Strain of unspecified muscle, fascia and tendon at shoulder and upper arm level, right arm, initial encounter; G89.29 Other chronic pain; M54.50 Low back pain, unspecified; R26.9 Unspecified abnormalities of gait and mobility; K44.9 Diaphragmatic hernia without obstruction or gangrene; R79.89 Other specified abnormal findings of blood chemistry; E78.5 Hyperlipidemia, unspecified; E86.1 Hypovolemia; E66.01 Morbid (severe) obesity due to excess calories; E87.6 Hypokalemia; I67.2 Cerebral atherosclerosis; E86.0 Dehydration; F10.20 Alcohol dependence, uncomplicated; E87.8 Other disorders of electrolyte and fluid balance, not elsewhere classified; D63.8 Anemia in other chronic diseases classified elsewhere; Y92.89 Other specified places as the place of occurrence of the external cause; Y93.89 Activity, other specified; Y99.8 Other external cause status; Z80.1 Family history of malignant neoplasm of trachea, bronchus and lung; Z68.32 Body mass index [BMI] 32.0-32.9, adult; Z71.9 Counseling, unspecified; Z79.899 Other long term (current) drug therapy; Z80.0 Family history of malignant neoplasm of digestive organs; Z86.73 Personal history of transient ischemic attack (TIA), and cerebral infarction without residual deficits; Z60.2 Problems related to living alone
CPT/HCPCS: 36415; 36600; 70450; 70551; 71045; 74177; 80048; 80053; 80307; 80320; 81001; 82040; 82140; 82306; 82570; 82607; 82805; 82962; 83605; 83735; 83880; 83935; 84100; 84156; 84295; 84300; 84425; 84439; 84443; 84478; 84484; 85007; 85014; 85018; 85025; 85027; 85610; 85730; 86850; 86900; 86901; 86920; 87040; 87426; 92610; 93005; 94640; 95819; 96361; 96365; 96367; 96375; 97110; 97116; 97163; 97530; C9113; G0378; J0696; J1756; J1815; J1956; J2250; J2405; J3490; J7131

== ENCOUNTER 2021-10-29 14:39 | Emergency (ER) | payer BC ==
[~2021-10-29] VITALS: Ht 180.3 cm; Wt 97.5 kg
[~2021-10-29 14:39] MED LIST changes: +BUTA-281 OR; +CYCL-839 PO; +IBUP800T27 PO; +TRAM50TA2 PO
[2021-10-29 16:39] LABS: Basophils # (auto) 0.1 10 ^3/uL (0-0.2); Basophils % (auto) 0.3 % (0.0-2.0); Eosinophils # (auto) 0 10 ^3/uL (0-0.8); Eosinophils % (auto) 0.1 % (0.0-7.0); Hematocrit 38.6 % (41.0-53.0); Hemoglobin 13.3 g/dL (13.5-17.5); Lymphocytes # (auto) 1.5 10 ^3/uL (0.4-5.4); Lymphocytes % (auto) 7.4 % (10.0-50.0); Mean Corpuscular Hemoglobin 30.4 pg (28.0-32.0); Mean Corpuscular Hgb Conc. 34.6 g/dL (32.0-36.0); Mean Corpuscular Volume 87.9 fL (80.0-100.0); Monocytes # (auto) 0.9 10 ^3/uL (0-1.3); Monocytes % (auto) 4.4 % (0.0-12.0); Neutrophils # (auto) 18.1 10 ^3/uL (1.6-8.6); Neutrophils % (auto) 87.8 % (37.0-80.0); Nucleated Red Blood Cells % 0.2 %; Red Blood Cells 4.38 10^6/uL (4.5-5.90); Red Cell Distribution Width 15.6 % (11.8-14.3); White Blood Cell 20.6 10^3/uL (4.4-10.8)
[2021-10-29 16:44] LABS: Albumin 4.1 g/dL (3.4-5.0); Potassium 4.3 mmol/L (3.5-5.1)
[2021-10-29] MEDS ORDERED: ONDANSETRON HCL 4 MG/2 ML VIAL IV ONE (16:45)
[2021-10-29] MEDS ORDERED: HYDROmorphone HCL 2 MG/ML VL IV ONE ×2 (16:45→19:00)
[2021-10-29 16:47] LABS: BUN/Creatinine Ratio 17.6; Bilirubin, Total 0.2 mg/dL (0.2-1.0); Total Protein 7.5 g/dL (6.4-8.2)
[2021-10-29 16:51] LABS: INR 0.95 (0.9-1.15)
[2021-10-29 19:27] VITALS: BP 119/78
== END 2021-10-29 21:09 | disposition short-term general hospital (02) ==
LOC: ER 14:39 → EDBD 14:39 → ER 21:09
DX: S27.0XXA Traumatic pneumothorax, initial encounter (principal); I10 Essential (primary) hypertension; J45.909 Unspecified asthma, uncomplicated; E78.5 Hyperlipidemia, unspecified; F17.210 Nicotine dependence, cigarettes, uncomplicated; Z88.8 Allergy status to other drugs, medicaments and biological substances; Z79.899 Other long term (current) drug therapy; V86.59XA Driver of other special all-terrain or other off-road motor vehicle injured in nontraffic accident, initial encounter; Y93.89 Activity, other specified; Y92.89 Other specified places as the place of occurrence of the external cause; Y99.8 Other external cause status
CPT/HCPCS: 32551; 36415; 71250; 80053; 85025; 85610; 86850; 86900; 86901; 96374; 96375; 96376; 99291; J1170; J2405